=== PATIENT | male | born 1990 | race Caucasian/White ===

== ENCOUNTER 2021-07-07 22:50 | Emergency (ER) | payer BC ==
[2021-07-07] MEDS ORDERED: methylPREDNISolone Sodium Succinate 125 MG/2 ML SDV IVPUSH ONE (23:01)
[2021-07-07] MEDS ORDERED: Lidocaine 2% Jelly 10 ML Urojet MUCMEM ONE (23:01)
== END 2021-07-07 23:49 | disposition home or self-care (01) ==
LOC: JP.ED 22:50
DX: L23.7 Allergic contact dermatitis due to plants, except food (principal); L55.0 Sunburn of first degree; Z88.2 Allergy status to sulfonamides
CPT/HCPCS: 96374; 99281; 99283-25; J2930